=== PATIENT | female | born 1975 | race Caucasian/White ===

== ENCOUNTER 2020-12-25 11:35 | Emergency (ER) | payer MEDICAID ==
[~2020-12-25] VITALS: Ht 167.6 cm; Wt 64.4 kg
[2020-12-25 12:12] VITALS: BP 138/64
--- NOTE | 2020-12-25 12:15 | NUR ---
Patient [email or web address], from home, c/o right knee pain and swelling s/p slipped and fall 8/10 pain scale. Patient alert and oriented x4 and able to verbalize needs. No respiratory distress noted. Respirations even and unlabored. Awaiting md senior
[2020-12-25] MEDS ORDERED: ACETAMINOPHEN ES 500 MG TABLET ONE (12:21)
[2020-12-25] MEDS ORDERED: ACETAMINOPHEN ES 500 MG TABLET PO ONE (12:30)
[2020-12-25] MEDS ORDERED: ACET-73 PO (13:11)
--- NOTE | 2020-12-25 13:48 | NUR ---
Patient discharged to home in stable condition. Written and verbal after care instructions given. Patient verbalizes understanding of instruction.
== END 2020-12-25 13:49 | disposition home or self-care (01) ==
LOC: ER 12:16
DX: S82.091A Other fracture of right patella, initial encounter for closed fracture (principal); E78.5 Hyperlipidemia, unspecified; I10 Essential (primary) hypertension; E11.9 Type 2 diabetes mellitus without complications; Z79.899 Other long term (current) drug therapy; W01.0XXA Fall on same level from slipping, tripping and stumbling without subsequent striking against object, initial encounter; Y93.89 Activity, other specified; Y92.89 Other specified places as the place of occurrence of the external cause; Y99.8 Other external cause status
CPT/HCPCS: 73564-TC

== ENCOUNTER 2023-07-16 14:59 | Inpatient (IN) | payer MEDICAID, OTHER ==
[~2023-07-16] VITALS: Ht 154.9 cm; Wt 56.7 kg
[~2023-07-16 14:59] MED LIST: ACET-73 PO; AMOX1TAB16 PO
[2023-07-16] MEDS ORDERED: HYDROCODONE/APAP 5/325MG TABLET ONE (15:29)
[2023-07-16] MEDS: HYDROCODONE/APAP 5/325MG TABLET PO ONE (15:31)
[2023-07-16 15:53] LABS: BASOPHILS # (AUTO) 0.1 K/uL (0.0-0.2); BASOPHILS % (AUTO) 1.2 % (0.0-2.0); EOSINOPHILS # (AUTO) 0.1 K/uL (0.0-0.7); EOSINOPHILS % (AUTO) 1.1 % (0.0-6.0); HEMATOCRIT 26 % (33-45); HEMOGLOBIN 8.8 g/dL (11.5-14.8); LYMPHOCYTES % (AUTO) 13.5 % (20.0-44.0); MEAN CORPUSCULAR HEMOGLOBIN 33 PG (26.0-33.0); MEAN CORPUSCULAR HGB CONC 34 g/dl (31.0-36.0); MEAN CORPUSCULAR VOLUME 96 fL (82-100); MONOCYTES # (AUTO) 0.7 K/uL (0.1-1.30); MONOCYTES % (AUTO) 10.5 % (2.0-12.0); NEUTROPHILS # (AUTO) 5.2 K/uL (1.8-8.9); NEUTROPHILS % (AUTO) 73.7 % (43.0-81.0); PLATELET COUNT (AUTO) 132 K/uL (150-450); RED BLOOD CELL COUNT(AUTO) 2.65 MIL/uL (4.0-5.2); RED CELL DISTRIBUTION WIDTH 15.3 % (11.5-15.0); WHITE BLOOD COUNT (AUTO) 7.1 K/uL (4.3-11.0)
[2023-07-16 16:06] LABS: CALCIUM, SERUM 8.6 mg/dL (8.5-10.1); CARBON DIOXIDE 23 mmol/L (21-32); CHLORIDE 90 mmol/L (98-107); GLUCOSE 201 mg/dL (74-106); POTASSIUM 5.1 mmol/L (3.5-5.1); SODIUM SERUM 131 mmol/L (136-145)
[2023-07-16 16:17] LABS: CREATININE 7.9 mg/dL (0.6-1.3); UREA NITROGEN, BLOOD 104 mg/dL (7-18)
[2023-07-16 20:00] VITALS: BP 174/74; TEMP 99.3; O2SAT 92
[2023-07-16] MEDS ORDERED: NITROGLYCERIN 0.4 MG/TAB BOTTLE SL PRN (20:00)
[2023-07-16] MEDS ORDERED: Z GUARD REMEDY 4 OZ OINT TP PRN (20:00)
[2023-07-16] MEDS ORDERED: ONDANSETRON HCL/PF 4 MG/2 ML VIAL IVP PRN (20:00)
[2023-07-16] MEDS ORDERED: DEXTROSE 50%-WATER 50 ML DISP.SYRIN IV PRN (20:00)
[2023-07-16] MEDS: HYDROCODONE/APAP 5/325MG TABLET PO PRN (20:28)
[2023-07-16] MEDS: METOCLOPRAMIDE HCL 10 MG/2 ML VIAL IV ONE (20:28)
[2023-07-16] MEDS: ASPIRIN 81 MG TAB.CHEW PO SCH (20:28)
[2023-07-16] MEDS: diphenhydrAMINE HCL 50 MG/ML VIAL IV ONE (20:28)
[2023-07-16] MEDS: BLOOD SUGAR DIAGNOSTIC 1 EACH STRIP IN SCH (22:47)
[2023-07-17] VITALS: BP 157/84; TEMP 99; O2SAT 92
[2023-07-17] MEDS: hydrALAZINE HCL 25 MG TABLET PO PRN (00:58)
[2023-07-17 04:27] VITALS: BP 163/85; TEMP 98.8; O2SAT 97
[2023-07-17 07:10] LABS: BASOPHILS # (AUTO) 0.1 K/uL (0.0-0.2); BASOPHILS % (AUTO) 0.9 % (0.0-2.0); EOSINOPHILS # (AUTO) 0.1 K/uL (0.0-0.7); EOSINOPHILS % (AUTO) 0.9 % (0.0-6.0); HEMATOCRIT 24 % (33-45); HEMOGLOBIN 8.3 g/dL (11.5-14.8); LYMPHOCYTES % (AUTO) 14.4 % (20.0-44.0); MEAN CORPUSCULAR HEMOGLOBIN 34 PG (26.0-33.0); MEAN CORPUSCULAR HGB CONC 35 g/dl (31.0-36.0); MEAN CORPUSCULAR VOLUME 97 fL (82-100); MONOCYTES # (AUTO) 0.8 K/uL (0.1-1.30); MONOCYTES % (AUTO) 11.6 % (2.0-12.0); NEUTROPHILS % (AUTO) 72.2 % (43.0-81.0); PLATELET COUNT (AUTO) 125 K/uL (150-450); RED BLOOD CELL COUNT(AUTO) 2.47 MIL/uL (4.0-5.2); RED CELL DISTRIBUTION WIDTH 15.2 % (11.5-15.0); WHITE BLOOD COUNT (AUTO) 6.9 K/uL (4.3-11.0)
[2023-07-17 07:24] LABS: ALBUMIN 3.2 g/dL (3.4-5.0); BILIRUBIN,DIRECT 0.2 mg/dL (0.0-0.2); BILIRUBIN,TOTAL 0.4 mg/dL (0.2-1.0); CALCIUM, SERUM 8.5 mg/dL (8.5-10.1); MAGNESIUM 2.6 mg/dL (1.8-2.4); PHOSPHORUS 5.4 mg/dL (2.5-4.9); POTASSIUM 5.4 mmol/L (3.5-5.1); TOTAL PROTEIN, SERUM 7.5 g/dL (6.4-8.2)
[2023-07-17 07:30] VITALS: BP 169/145; TEMP 98.4; O2SAT 97
[2023-07-17 07:43] LABS: THYROID STIMULATING HORMONE 4.322 uIU/mL (0.358-3.74)
[2023-07-17] MEDS: PANTOPRAZOLE 40 MG TABLET.DR PO SCH (08:27)
[2023-07-17] MEDS: ATORVASTATIN 10 MG TABLET PO SCH (09:37)
[2023-07-17] MEDS: DIVALPROEX SODIUM 500 MG TABLET.DR PO ONE (12:00)
[2023-07-17] MEDS: SUMATRIPTAN SUCCINATE 6 MG/0.5 ML VIAL SQ ONE (12:58)
[2023-07-17] MEDS: METOPROLOL TARTRATE 50 MG TABLET PO SCH (13:00)
[2023-07-17] MEDS: dexaMETHasone SOD PHOSPHATE 10 MG/ML VIAL IV ONE (13:01)
[2023-07-17] MEDS: POLYETHYLENE GLYCOL 3350 17 GM POWD.PACK PO SCH (13:02)
[2023-07-17] MEDS: INSULIN REGULAR, HUMAN 100 UNIT/ML 3 ML VIAL SQ PRN (13:04)
[2023-07-17] MEDS ORDERED: METOPROLOL TARTRATE INJ 5 MG/5 ML AMPUL IVP PRN (14:30)
[2023-07-17] MEDS ORDERED: NITROGLYCERIN 0.4 MG/TAB BOTTLE ONE (14:40)
[2023-07-17] MEDS ORDERED: METOPROLOL TARTRATE INJ 5 MG/5 ML AMPUL ONE (14:40)
[2023-07-17] MEDS ORDERED: IV NS 0.9% 250 ML IV ONE (14:44)
[2023-07-17] MEDS ORDERED: IOHEXOL-350 100 ML VIAL IV ONE (14:44)
[2023-07-17] MEDS ORDERED: CT SWABBABLE VALVE TRANS SET 1 EA INFUS.SET MC ONE (14:45)
[2023-07-17] MEDS: NITROGLYCERIN 0.4 MG/TAB BOTTLE SL ONE (14:47)
[2023-07-17] MEDS ORDERED: PHEN100C12 PO (15:39)
[2023-07-17] MEDS ORDERED: LEVO50TA8 PO (15:39)
[2023-07-17] MEDS ORDERED: ASPI-1420 PO (15:39)
[2023-07-17] MEDS ORDERED: HYDR-4077 PO (15:39)
[2023-07-17] MEDS ORDERED: METO10TA3 PO (15:39)
[2023-07-17] MEDS ORDERED: CHOL200059 PO (15:39)
[2023-07-17] MEDS ORDERED: INSU100I30 SQ (15:39)
[2023-07-17] MEDS ORDERED: SEVE800T7 PO (15:39)
[2023-07-17] MEDS ORDERED: LEVE500T20 PO (15:39)
[2023-07-17] MEDS ORDERED: CARV12.52 PO (15:39)
[2023-07-17] MEDS ORDERED: DOCU-141 PO (15:39)
[2023-07-17] MEDS ORDERED: METH-647 PO (15:39)
[2023-07-17] MEDS ORDERED: SENN-261 PO (15:39)
[2023-07-17] MEDS ORDERED: GABA-532 PO (15:39)
[2023-07-17] MEDS ORDERED: ATOR80TA PO (15:39)
[2023-07-17] MEDS ORDERED: MINO10TA2 PO (15:39)
[2023-07-17] MEDS ORDERED: FOLI0.8T2 PO (15:39)
[2023-07-17] MEDS ORDERED: PANT40TA49 PO (15:39)
[2023-07-17 16:00] VITALS: BP 138/68; TEMP 97.7; O2SAT 90
[2023-07-17] MEDS: SEVELAMER CARBONATE 800 MG TABLET PO SCH (18:35)
[2023-07-17 20:00] VITALS: BP 113/60; TEMP 97.8; O2SAT 97
[2023-07-17] MEDS: ACETAMINOPHEN 325 MG TABLET PO PRN (20:41)
[2023-07-17] MEDS: ATORVASTATIN 40 MG TABLET PO SCH (22:22)
[2023-07-18] VITALS (8 sets, daily range): BP systolic 94–138; BP diastolic 52–74; TEMP 97.5–98.2; O2SAT 93–99
[2023-07-18 07:11] LABS: BASOPHILS % (AUTO) 0.8 % (0.0-2.0); EOSINOPHILS # (AUTO) 0.1 K/uL (0.0-0.7); EOSINOPHILS % (AUTO) 1.6 % (0.0-6.0); HEMATOCRIT 22 % (33-45); HEMOGLOBIN 7.7 g/dL (11.5-14.8); LYMPHOCYTES # (AUTO) 0.7 K/uL (0.8-4.8); MEAN CORPUSCULAR HEMOGLOBIN 33 PG (26.0-33.0); MEAN CORPUSCULAR HGB CONC 35 g/dl (31.0-36.0); MEAN CORPUSCULAR VOLUME 95 fL (82-100); MONOCYTES # (AUTO) 0.6 K/uL (0.1-1.30); MONOCYTES % (AUTO) 13.8 % (2.0-12.0); NEUTROPHILS # (AUTO) 3.1 K/uL (1.8-8.9); NEUTROPHILS % (AUTO) 68.8 % (43.0-81.0); PLATELET COUNT (AUTO) 137 K/uL (150-450); RED BLOOD CELL COUNT(AUTO) 2.32 MIL/uL (4.0-5.2); RED CELL DISTRIBUTION WIDTH 15.2 % (11.5-15.0); WHITE BLOOD COUNT (AUTO) 4.5 K/uL (4.3-11.0)
[2023-07-18 07:50] LABS: CALCIUM, SERUM 8.4 mg/dL (8.5-10.1); CREATININE 6.2 mg/dL (0.6-1.3); MAGNESIUM 2.5 mg/dL (1.8-2.4); PHOSPHORUS 5.7 mg/dL (2.5-4.9); POTASSIUM 4.5 mmol/L (3.5-5.1)
[2023-07-18] MEDS: LEVOTHYROXINE SODIUM 50 MCG TABLET PO SCH (08:01)
[2023-07-18] MEDS: MINOXIDIL (2.5MG) 2.5 MG TABLET PO SCH (09:07)
[2023-07-18] MEDS: SENNOSIDES 8.6 MG TABLET PO SCH (09:08)
[2023-07-18] MEDS: CHOLECALCIFEROL (VITAMIN D 3) 400 UNIT TABLET PO SCH (09:08)
[2023-07-18] MEDS: PHENYTOIN EXTENDED RELEASE 100 MG CAPSULE PO SCH (09:08)
[2023-07-18] MEDS: hydrALAZINE HCL 50 MG TABLET PO SCH (09:08)
[2023-07-18] MEDS: VIT B CMPLX 3/FA/VIT C/BIOTIN 1 TAB TABLET PO SCH (09:08)
[2023-07-18] MEDS: CARVEDILOL 12.5 MG TABLET PO SCH (09:09)
[2023-07-18] MEDS: DOCUSATE SODIUM 100 MG CAPSULE PO SCH (09:09)
[2023-07-18] MEDS: INSULIN GLARGINE, 100 UNIT/ML CARTRIDGE SQ SCH (09:25)
[2023-07-19] VITALS (9 sets, daily range): BP systolic 107–152; BP diastolic 52–66; TEMP 98–98.4; O2SAT 93–99
[2023-07-19 06:44] LABS: CALCIUM, SERUM 7.6 mg/dL (8.5-10.1); CREATININE 3.6 mg/dL (0.6-1.3); POTASSIUM 3.3 mmol/L (3.5-5.1)
[2023-07-19 06:45] LABS: BASOPHILS % (AUTO) 0.7 % (0.0-2.0); EOSINOPHILS # (AUTO) 0.1 K/uL (0.0-0.7); EOSINOPHILS % (AUTO) 2.2 % (0.0-6.0); HEMATOCRIT 22 % (33-45); HEMOGLOBIN 7.6 g/dL (11.5-14.8); LYMPHOCYTES # (AUTO) 0.6 K/uL (0.8-4.8); LYMPHOCYTES % (AUTO) 18.7 % (20.0-44.0); MEAN CORPUSCULAR HEMOGLOBIN 33 PG (26.0-33.0); MEAN CORPUSCULAR HGB CONC 34 g/dl (31.0-36.0); MEAN CORPUSCULAR VOLUME 96 fL (82-100); MONOCYTES # (AUTO) 0.6 K/uL (0.1-1.30); MONOCYTES % (AUTO) 17.4 % (2.0-12.0); PLATELET COUNT (AUTO) 145 K/uL (150-450); RED BLOOD CELL COUNT(AUTO) 2.33 MIL/uL (4.0-5.2); RED CELL DISTRIBUTION WIDTH 14.9 % (11.5-15.0); WHITE BLOOD COUNT (AUTO) 3.3 K/uL (4.3-11.0)
[2023-07-19] MEDS: LEVETIRACETAM (250 MG) 250 MG TABLET PO SCH (08:53)
[2023-07-19] MEDS: POTASSIUM CHLORIDE 20 MEQ TAB.PRT.SR PO ONE (08:53)
[2023-07-19] MEDS: GABAPENTIN 300 MG CAPSULE PO SCH (08:54)
[2023-07-19 15:18] LABS: LYMPHOCYTES % (MANUAL) 20 % (16-48); MONOCYTES % (MANUAL) 20 % (0-11.0); NEUTROPHILS % (MANUAL) 60 (42-76); PLATELET ESTIMATE ADEQUATE
[2023-07-20 00:21] VITALS: BP 137/63; TEMP 98; O2SAT 98
[2023-07-20 05:00] VITALS: BP 153/81; TEMP 97.7; O2SAT 98
[2023-07-20 06:57] LABS: CALCIUM, SERUM 7.8 mg/dL (8.5-10.1); CREATININE 5.5 mg/dL (0.6-1.3); POTASSIUM 4.9 mmol/L (3.5-5.1)
[2023-07-20 06:59] LABS: EOSINOPHILS # (AUTO) 0.1 K/uL (0.0-0.7); EOSINOPHILS % (AUTO) 2.7 % (0.0-6.0); HEMATOCRIT 25 % (33-45); HEMOGLOBIN 8.6 g/dL (11.5-14.8); LYMPHOCYTES # (AUTO) 0.7 K/uL (0.8-4.8); LYMPHOCYTES % (AUTO) 17.6 % (20.0-44.0); MEAN CORPUSCULAR HEMOGLOBIN 33 PG (26.0-33.0); MEAN CORPUSCULAR HGB CONC 34 g/dl (31.0-36.0); MEAN CORPUSCULAR VOLUME 96 fL (82-100); MONOCYTES # (AUTO) 0.7 K/uL (0.1-1.30); NEUTROPHILS # (AUTO) 2.3 K/uL (1.8-8.9); NEUTROPHILS % (AUTO) 59.7 % (43.0-81.0); PLATELET COUNT (AUTO) 158 K/uL (150-450); RED BLOOD CELL COUNT(AUTO) 2.63 MIL/uL (4.0-5.2); RED CELL DISTRIBUTION WIDTH 15.3 % (11.5-15.0); WHITE BLOOD COUNT (AUTO) 3.9 K/uL (4.3-11.0)
[2023-07-20 08:00] VITALS: BP 194/78; TEMP 98.4; O2SAT 94
[2023-07-20 09:35] LABS: ANISOCYTOSIS 1+; EOSINOPHILS % (MANUAL) 2 % (0-4); LYMPHOCYTES % (MANUAL) 17 % (16-48); MONOCYTES % (MANUAL) 20 % (0-11.0); NEUTROPHILS % (MANUAL) 61 (42-76); PLATELET ESTIMATE ADEQUATE
[2023-07-20] MEDS ORDERED: METO50TA16 PO (09:57)
[2023-07-20] MEDS: METOPROLOL TARTRATE 50 MG TABLET PO SCH (10:00)
[2023-07-20 12:00] VITALS: BP 192/82; TEMP 98.4; O2SAT 95
[2023-07-20 16:00] VITALS: BP 163/70; TEMP 98.6; O2SAT 96
[2023-07-20 20:00] VITALS: BP 151/75; TEMP 98.1; O2SAT 94
[2023-07-21] VITALS (7 sets, daily range): BP systolic 134–213; BP diastolic 69–91; TEMP 97.7–99.1; O2SAT 93–98
[2023-07-21] MEDS: CLONIDINE HCL 0.1 MG TABLET PO PRN (12:44)
== END 2023-07-21 18:59 | disposition home or self-care (01) | DRG 194 ==
LOC: ER 15:19 → TELE 17:57
PROVIDERS: ADMIT Nurse Practitioner Family; ATTEND Internal Medicine
PROC: 5A1D70Z Performance of Urinary Filtration, Intermittent, Less than 6 Hours Per Day (ICD-10-PCS; principal; 2023-07-17)
DX: I13.2 Hypertensive heart and chronic kidney disease with heart failure and with stage 5 chronic kidney disease, or end stage renal disease (principal); N18.6 End stage renal disease; I27.20 Pulmonary hypertension, unspecified; E87.1 Hypo-osmolality and hyponatremia; D63.1 Anemia in chronic kidney disease; E11.22 Type 2 diabetes mellitus with diabetic chronic kidney disease; D50.9 Iron deficiency anemia, unspecified; I25.118 Atherosclerotic heart disease of native coronary artery with other forms of angina pectoris; I50.33 Acute on chronic diastolic (congestive) heart failure; Z99.2 Dependence on renal dialysis; E78.5 Hyperlipidemia, unspecified; I16.0 Hypertensive urgency; Z95.1 Presence of aortocoronary bypass graft; N25.0 Renal osteodystrophy; G43.909 Migraine, unspecified, not intractable, without status migrainosus; I34.89 Other nonrheumatic mitral valve disorders; Z79.4 Long term (current) use of insulin
CPT/HCPCS: 36415; 36600; 70450-TC; 71045-TC; 75574; 80048-TC; 80061-TC; 80076-TC; 82803-TC; 82962-TC; 83540-TC; 83735-TC; 84100-TC; 84443-TC; 84484-TC; 85025-TC; 86706; 87040-TC; 87340; 90935-TC; 93307-TC; 93308-TC; 93970-TC; 94760-TC; 94799-TC; G0378; J1100; J1200; J1815; J2765; J3030; J3490; J7050; Q9967